=== PATIENT | female | born 2000 | race African-American/Black ===

== ENCOUNTER 2024-08-05 18:38 | Emergency (ER) | payer OTHER ==
[~2024-08-05] VITALS: Ht 157.5 cm; Wt 48.5 kg
[2024-08-05 18:40] VITALS: BP 109/70; PULSE 65; RESP 16; TEMP 36.7; O2SAT 100
[2024-08-05] MEDS: METHYLPREDNISOLONE SOD SUCC 125MG/2ML (ACT-O-VIAL) IM ONE (19:44)
[2024-08-05] MEDS: FAMOTIDINE 20MG TABLET PO ONE (19:44)
== END 2024-08-05 21:56 | disposition home or self-care (01) ==
LOC: ER 18:38
DX: T78.3XXA Angioneurotic edema, initial encounter (principal); Y92.89 Other specified places as the place of occurrence of the external cause
CPT/HCPCS: 96372; 99283; J2919; Z7610